=== PATIENT | male | born 1950 | race American Indian/Alaskan Native ===

== ENCOUNTER 2016-12-25 05:59 | Day surgery (SDC) | payer MEDICARE ==
[2016-12-25] MEDS ORDERED: ECOTRIN PO ONE (06:17)
[2016-12-25 06:50] LABS: Hematocrit 46.7 % (35.5-45.6); Hemoglobin 15.2 gm/dl (11.8-15.2); Mean Corpuscular HGB Conc 32 % (32-34); Mean Corpuscular Hemoglobin 32 pg (28-32); Mean Corpuscular Volume 99 fl (84-94); Platelet Count 136 K/mm3 (140-440); Red Blood Count 4.74 M/mm3 (3.65-5.03); Red Cell Distribution Width 18.1 % (13.2-15.2); White Blood Count 3.6 K/mm3 (4.5-11.0)
[2016-12-25] MEDS ORDERED: NACL 0.9% 500 ML 500 ML IV SCH (07:00)
[2016-12-25 07:03] LABS: INR 1.02 (0.87-1.13)
[2016-12-25 07:33] LABS: Anion Gap 16 mmol/L; BUN/Creatinine Ratio 6.66; Blood Urea Nitrogen 6 mg/dL (9-20); Calcium 9.4 mg/dL (8.4-10.2); Carbon Dioxide 28 mmol/L (22-30); Chloride 105.7 mmol/L (98-107); Glucose 89 mg/dL (75-100); Potassium 4.4 mmol/L (3.6-5.0); Sodium 145 mmol/L (137-145)
[2016-12-25] MEDS ORDERED: NITROGLYCERIN SYRINGE 3 ML ONE (08:51)
[2016-12-25] MEDS ORDERED: HEPARIN/NS 5000 UNIT/500ML(CATH LAB) 1,000 ML IR ONE (08:51)
[2016-12-25] MEDS ORDERED: VERSED ONE (08:52)
[2016-12-25] MEDS ORDERED: SUBLIMAZE ONE (08:52)
[2016-12-25 09:16] LABS: Basophils % (Manual) 0 % (0.0-1.8); Blastocytes % (Manual) 0 %; Diff Status Complete; RBC Morphology Normal
[2016-12-25] MEDS: XYLOCAINE 2% INFILTRATI ONE ×2 (09:17→09:26)
[2016-12-25] MEDS: CALAN ONE ×2 (09:17→09:27)
[2016-12-25] MEDS: HEPARIN 10,000 UNITS/10 ML ONE ×2 (09:18→09:27)
[2016-12-25] MEDS ORDERED: NACL 0.9% 1000 ML 1,000 ML IV SCH (10:00)
--- NOTE | 2016-12-25 10:00 | Discharge Summary ---
Short Stay Discharge Plan Activity: advance as tolerated Weight Bearing Status: Full Weight Bearing Diet: low fat, low cholesterol, low salt Wound: keep clean and dry Special Instructions: no heavy lifting (3 days) Follow up with: CHEMO FARRELL MD [Primary Care Provider] - 7 Days ADELFO MC MD [Staff Physician] - 7 Days
--- NOTE | 2016-12-25 10:22 | Cardiac Catherization Report ---
REASON FOR PROCEDURE: Chest pain and abnormal thallium stress test. PROCEDURE: The patient was prepped and draped in a sterile fashion after informed consent. The right radial cath site was prepped and draped after a negative Carson's test. The right radial artery was entered using the Seldinger technique followed by placement of a 6-[place] hydrophilic sheath. Selective left and right coronary angiography was performed. A 3.5 left Juan catheter was used for left coronary angiography, and a #4 right Juan was used for right coronary angiography. The pigtail catheter was used for left ventricular angiography. The catheters were removed, sheath removed, and hemostasis achieved using manual compression. The patient was returned to the post-procedure unit in stable condition. There were no complications. FINDINGS: HEMODYNAMICS: Left ventricle end diastolic pressure was 20, following coronary angiography. Ascending aortic pressure was 148/77. There was no significant pressure gradient on pullback across the aortic valve. CORONARY ANGIOGRAPHY: There was severe, heavy calcification of the distal left main and proximal left anterior descending artery. The left main coronary artery contained mild distal tapering, but no significant obstructive lesions. The left anterior descending artery contained diffuse mild atherosclerosis of its proximal and mid segments, associated with heavy calcification. Following that, mild irregularities were noted of the mid and distal segments of the LAD. A large ramus intermedius artery contained a 30% stenosis of its proximal to mid segment. The circumflex artery was a relatively small caliber system, contained diffuse mild atherosclerosis with an up to 30% luminal stenosis at the origin of the mid obtuse marginal branch. The right coronary artery was dominant. This vessel contained diffuse mild atherosclerosis of its proximal and entire mid segment. No severe obstructive lesions were noted in this system. Left ventricular chamber size and systolic function was well within normal limits, ejection fraction 50-55%. CONCLUSION: 1. Diffuse nonobstructive coronary artery disease, including heavy calcification of the distal left main and proximal left anterior descending. 2. Well preserved left ventricular systolic function, ejection fraction 50-55%. RECOMMENDATION: 1. Aggressive risk factor modification. 2. Medical therapy. JOB# [id number] CA/NTS
[2016-12-25 12:49] VITALS: BP 141/89
== END 2016-12-25 13:00 | disposition home or self-care (01) ==
LOC: OPU 05:59
PROVIDERS: ATTEND Internal Medicine Cardiovascular Disease
DX: I25.10 Atherosclerotic heart disease of native coronary artery without angina pectoris (principal); I10 Essential (primary) hypertension; J44.9 Chronic obstructive pulmonary disease, unspecified; Z72.89 Other problems related to lifestyle; Z87.891 Personal history of nicotine dependence; Z82.49 Family history of ischemic heart disease and other diseases of the circulatory system
CPT/HCPCS: 36415; 80048; 85007; 85025; 85610; 85730; 93005; 93010; 93458; C1894; J1644; J2250; J3010; J7040; Q9967